=== PATIENT | male | born 1955 | race Caucasian/White ===

== ENCOUNTER → 2017-10-24 | Outpatient (CLI) | payer OTHER, BC ==
[~2017-10-24] MED LIST: CYCL10TA6 PO; DULO60CA44 PO; FURO-85 PO; HYDR-5688 PO; MELO7.5T5 PO; METO50TA16 PO; MULT-506 PO; PRLSR20 PO
[2017-10-24 18:43] LABS: ALBUMIN 3.5 gm/dl (3.4-5.0); ALT/SGPT 40 U/L (12-78); AST/SGOT 22 U/L (15-37); BLOOD UREA NITROGEN 14 mg/dl (7-18); CALCIUM 8.9 mg/dl (8.5-10.1); CARBON DIOXIDE 25 mmol/L (21-32); CREATININE 0.84 mg/dl (0.60-1.40); GLUCOSE 126 mg/dl (70-99); POTASSIUM 3.8 mmol/L (3.5-5.1); SODIUM 138 mmol/L (136-145)
[2017-10-24 18:45] LABS: ALKALINE PHOSPHATASE 81 U/L (45-117); CHOLESTEROL 231 mg/dl (0-200); LDL CHOLESTEROL CALCULATED 167 mg/dl; TOTAL PROTEIN 7.5 gm/dl (6.4-8.2)
[2017-10-24 19:01] LABS: HEMATOCRIT 44.9 % (42-52); HEMOGLOBIN 15.5 g/dL (14.0-18.0); MEAN CELL VOLUME 91.4 fL (80-100); MEAN CORPUSCULAR HEMOGLOBIN 31.6 pg (25-34); MEAN CORPUSCULAR HGB CONC 34.5 g/dl (32-36); RED CELL DISTRIBUTION WIDTH CV 13.6 % (11.5-14.5); RED CELL DISTRIBUTION WIDTH SD 45.1 fL (36.4-46.3); WHITE BLOOD COUNT 7.35 K/uL (4.8-10.8)
[2017-10-24 19:23] LABS: BASO % 0.4 %; BASO ABS # 0.03 K/uL (0-0.2); EOS % 1.9 %; EOS ABS # 0.14 K/uL (0-0.5); IG# 0.02 K/uL (0.00-0.02); LYMPH % 33.7 %; LYMPH ABS # 2.48 K/uL (1.2-3.4); MONO % 6.1 %; MONO ABS # 0.45 K/uL (0.11-0.59); NEUT % 57.6 %; NEUT ABS # 4.23 K/uL (1.4-6.5)
== END | disposition home or self-care (01) ==
LOC: C.LABSPEC 17:56
PROVIDERS: ATTEND Family Medicine
DX: I10 Essential (primary) hypertension (principal); E78.2 Mixed hyperlipidemia; F32.9 Major depressive disorder, single episode, unspecified